=== PATIENT | female | born 1990 ===

== ENCOUNTER 2020-01-12 09:19 | Emergency (ER) | payer SELFPAY ==
[2020-01-12 09:34] VITALS: BP 151/61
== END 2020-01-12 13:08 | disposition left against medical advice (07) ==
LOC: ED 09:19
DX: Z53.21 Procedure and treatment not carried out due to patient leaving prior to being seen by health care provider (principal)

== ENCOUNTER 2020-01-16 12:13 | Emergency (ER) | payer SELFPAY ==
[2020-01-16 12:54] VITALS: BP 134/84
--- NOTE | 2020-01-16 14:23 | Event Note ---
ED Screening Note Date of service: 01/16/20 Time: 14:18 ED Screening Note: 30 y o presents with LMP as 11/28/19 cc of pelvic pain with vag spotting x 1 episode This initial assessment/diagnostic orders/clinical plan/treatment(s) is/are subject to change based on patients health status, clinical progression and re- assessment by fellow clinical providers in the ED. Further treatment and workup at subsequent clinical providers discretion. Patient/guardian urged not to elope from the ED as their condition may be serious if not clinically assessed and managed. Initial orders include: labs, preg test, ua US
[2020-01-16 15:07] LABS: Bacteria,Urine 1+ /HPF (Negative); Bilirubin,Urine NEG (Negative); Blood,Urine SM (Negative); Color,Urine Yellow (Yellow); Mucus,Urine 3+ /HPF; Urobilinogen,Urine < 2.0 mg/dL (<2.0)
[2020-01-16 15:12] LABS: WBC,Urine > 182.0 /HPF (0.0-6.0)
--- NOTE | 2020-01-16 16:01 | Ultrasound Report ---
US OB transvaginal INDICATION / CLINICAL INFORMATION: pelv pain. TECHNIQUE: Transvaginal. Duplex Color Doppler used: No. COMPARISON: None available FINDINGS: UTERUS: Measures 10.4 x 4.5 x 6.4 cm. IUD is visualized. No intrauterine gestational sac. -Endometrial stripe measures 0.9 cm. - Mass lesions: None. RIGHT ADNEXA: No significant ovarian cyst or mass. Normal color Doppler blood flow. LEFT ADNEXA: No significant ovarian cyst or mass. Normal color Doppler blood flow. URINARY BLADDER: No significant abnormality. FREE FLUID: None. ADDITIONAL FINDINGS: None. IMPRESSION: 1. No intrauterine gestational sac. IUD is visualized in the endometrial canal. Correlate with beta-h CG and repeat clinical sonograms as clinically needed. Signer Name: Supa Romo MD Signed: 01/16/2020 3:57 PM Workstation Name: [id number]
--- NOTE | 2020-01-16 16:22 | Ultrasound Report ---
US OB <= 14 weeks fetus INDICATION / CLINICAL INFORMATION: pelv pain. TECHNIQUE: Transvaginal. Duplex Color Doppler used: No. COMPARISON: None available FINDINGS: UTERUS: Measures 10.4 x 4.5 x 6.4 cm. IUD is visualized. No intrauterine gestational sac. -Endometrial stripe measures 0.9 cm. - Mass lesions: None. RIGHT ADNEXA: No significant ovarian cyst or mass. LEFT ADNEXA: No significant ovarian cyst or mass. URINARY BLADDER: No significant abnormality. FREE FLUID: None. ADDITIONAL FINDINGS: None. IMPRESSION: 1. No intrauterine gestational visualized. IUD is visualized in the endometrial canal. Morena elate with beta-hCG and repeat clinical sonograms as clinically needed. Signer Name: Supa Romo MD Signed: 01/16/2020 4:17 PM Workstation Name: [id number]
[2020-01-16 16:25] LABS: Basophils % (Auto) 0.5 % (0.0-1.8); Eosinophils # (Auto) 0.1 K/mm3 (0.0-0.4); Hematocrit 38.3 % (30.3-42.9); Lymphocytes # (Auto) 2.1 K/mm3 (1.2-5.4); Lymphocytes % (Auto) 25.2 % (13.4-35.0); Mean Corpuscular HGB Conc 34 % (30-34); Mean Corpuscular Volume 96 fl (79-97); Monocytes # (Auto) 0.5 K/mm3 (0.0-0.8); Monocytes % (Auto) 6.5 % (0.0-7.3); Platelet Count 236 K/mm3 (140-440); Red Cell Distribution Width 12.9 % (13.2-15.2)
[2020-01-16 16:42] LABS: Blood Urea Nitrogen 9 mg/dL (7-17); Calcium 9.3 mg/dL (8.4-10.2); Hemolysis Index 9
[2020-01-16 16:43] LABS: BUN/Creatinine Ratio 15
--- NOTE | 2020-01-16 21:48 | Emergency Department Report ---
ED Fall HPI - General Chief Complaint: Abdominal Pain Stated Complaint: 7 WKS /FALL INJURY Time Seen by Provider: 01/16/20 21:09 Source: patient Mode of arrival: Ambulatory - History of Present Illness Initial Comments: 30-year-old morbidly obese female that emerge department complaining of trip and fall to landing on the front of her her abdomen and being concerned because she has an IUD and thinks she is I would like further evaluation treatment options she did notice some spotting unsure if it was associated with these with urination reports no fever, chills, sweats no nausea vomiting was seen in emergency department on 05 January and diagnosed with urinary tract infection but did not take the take take the medication and notes that the pressure has has also increased since that time as well. - Related Data Previous Rx's Medication Instructions Recorded Last Taken Type Nitrofurantoin Mills/M-Cryst 100 mg PO Q12HR #20 capsule 01/16/20 Unknown Rx [Macrobid CAP] Phenazopyridine [Pyridium] 200 mg PO TID #10 tab 01/16/20 Unknown Rx Allergies Allergy/AdvReac Type Severity Reaction Status Date / Time No Known Allergies Allergy Verified 01/16/20 12:52 ED Review of Systems ROS: Stated complaint: 7 WKS /FALL INJURY Other details as noted in HPI Comment: All other systems reviewed and negative ED Past Medical Hx - Past Medical History Previous Medical History?: No - Surgical History Additional Surgical History: C SECTION - Social History Smoking Status: Never Smoker Substance Use Type: None - Medications Home Medications: Home Medications Medication Instructions Recorded Confirmed Last Taken Type Nitrofurantoin Mills/M-Cryst 100 mg PO Q12HR #20 capsule 01/16/20 Unknown Rx [Macrobid CAP] Phenazopyridine [Pyridium] 200 mg PO TID #10 tab 01/16/20 Unknown Rx ED Physical Exam - General Limitations: No Limitations General appearance: alert, in no apparent distress - Head Head exam: Present: atraumatic, normocephalic - Eye Eye exam: Present: normal appearance - ENT ENT exam: Present: mucous membranes moist - Neck Neck exam: Present: normal inspection - Respiratory Respiratory exam: Present: normal lung sounds bilaterally. Absent: respiratory distress - Cardiovascular Cardiovascular Exam: Present: regular rate, normal rhythm. Absent: systolic murmur, diastolic murmur, rubs, gallop - GI/Abdominal GI/Abdominal exam: Present: soft, normal bowel sounds. Absent: tenderness, guarding, hyperactive bowel sounds, organomegaly, mass, bruit - Extremities Exam Extremities exam: Present: normal inspection - Back Exam Back exam: Present: normal inspection - Neurological Exam Neurological exam: Present: alert, oriented X3 - Psychiatric Psychiatric exam: Present: normal affect, normal mood - Skin Skin exam: Present: warm, dry, intact, normal color. Absent: rash ED Course Vital Signs 01/16/20 12:53 Temperature 98.5 F Pulse Rate 72 Respiratory 20 Rate Blood Pressure 134/84 O2 Sat by Pulse 96 Oximetry ED Medical Decision Making - Lab Data Result diagrams: 01/16/20 16:10 01/16/20 16:10 - Radiology Data Radiology results: report reviewed Referring Physician:KEM CORNELLPatient Name:ERON JOHNSatient ID:[id number] of :[id number]:FemaleAccession:[id number] Date:[id number] Status:[place] [address] Ultrasound Report Signed Patient: ERON NOGUERA MR#: [id number] : 1990 Acct:[id number] Age/Sex: 30 / F ADM Date: 01/16/20 Loc: ED Attending Dr: Ordering Physician: ADDIE CASANOVA Date of Service: 01/16/20 Procedure(s): US OB <= 14 weeks fetus Accession Number(s): [id number] cc: ADDIE CASANOVA US OB <= 14 weeks fetus INDICATION / CLINICAL INFORMATION: pelv pain. TECHNIQUE: Transvaginal. Duplex Color Doppler used: No. COMPARISON: None available FINDINGS: UTERUS: Measures 10.4 x 4.5 x 6.4 cm. IUD is visualized. No intrauterine gestational sac. -Endometrial stripe measures 0.9 cm. - Mass lesions: None. RIGHT ADNEXA: No significant ovarian cyst or mass. LEFT ADNEXA: No significant ovarian cyst or mass. URINARY BLADDER: No significant abnormality. FREE FLUID: None. ADDITIONAL FINDINGS: None. IMPRESSION: 1. No intrauterine gestational visualized. IUD is visualized in the endometrial canal. Correlate with beta-hCG and repeat clinical sonograms as clinically needed. Signer Name: Supa Romo MD Signed: 01/16/2020 4:17 PM Workstation Name: [id number] Transcribed By: CHANTEL Dictated By: Supa Romo MD Electronically Authenticated By: Supa Romo MD Signed Date/Time: 01/16/201616 DD/ 15 TD/TT: - Medical Decision Making this patient presents to the emergency department with symptoms consistent with acute uncomplicated cystitis. No systemic symptoms. Not septic. She is well- appearing. Low suspicion for acute pyelonephritis given the lack of fever, CVA tenderness, or systemic features. Low suspicion for for kidney stone or infected stone. Not in age range for and her history and and presentation are complicated. No no indications for labs or imaging at this time. Stressed importance of medication compliance that she has not yet filled the previous antibiotic for urinary tract infection. Patient states that she will fill this medication and understands the importance of completion of therapy. Critical care attestation.: If time is entered above; I have spent that time in minutes in the direct care of this critically ill patient, excluding procedure time. ED Disposition Clinical Impression: UTI (urinary tract infection), Negative test Disposition: -01 TO HOME OR SELFCARE Is pt being admited?: No Does the pt Need Aspirin: No Condition: Stable Instructions: Abdominal Pain (ED), Urinary Tract Infection in Women (ED), Phenazopyridine (By mouth) Prescriptions: Nitrofurantoin Mills/M-Cryst [Macrobid CAP] 100 mg PO Q12HR #20 capsule Phenazopyridine [Pyridium] 200 mg PO TID #10 tab Referrals: PRIMARY CARE, [Primary Care Provider] - 3-5 Days [facility] [Provider Group] - 3-5 Days
== END 2020-01-16 22:05 | disposition home or self-care (01) ==
LOC: ED 12:13
DX: N39.0 Urinary tract infection, site not specified (principal); Z79.899 Other long term (current) drug therapy; Z98.890 Other specified postprocedural states; W18.30XA Fall on same level, unspecified, initial encounter; Y93.89 Activity, other specified; Y92.89 Other specified places as the place of occurrence of the external cause; Y99.8 Other external cause status
CPT/HCPCS: 36415; 76801; 76817; 80048; 81001; 84702; 85025